=== PATIENT | male | born 1990 | race Two or more races ===

== ENCOUNTER → 2022-06-20 13:51 | Outpatient (CLI) | payer BC, SELFPAY ==
--- NOTE | 2022-06-20 13:57 | CT_ITS ---
FINAL REPORT TECHNIQUE: Axial images were obtained through the chest without contrast. CLINICAL HISTORY: Abnormal CXR FINDINGS: CT CHEST WITHOUT CONTRAST The lungs are clear. The heart size is normal. There is no pericardial or pleural effusion. Limited images of the upper abdomen demonstrates mild fatty infiltration of the liver. No suspicious infiltrate or nodule identified. There is mild abnormal signal in the anterior mediastinum which is probably due to thymic tissue. The lungs are clear. IMPRESSION: Thymic tissue in the anterior mediastinum. Mild fatty infiltration of the liver. Reviewed, Interpreted and Dictated by Vinay Price MD Transcribed by Hien Masters Authenticated and [facility]
== END ==
PROVIDERS: PCP Pediatrics; Visit Provider Internal Medicine Pulmonary Disease
DX: R91.8 Other nonspecific abnormal finding of lung field (principal)
CPT/HCPCS: 71250